=== PATIENT | female | born 1960 | race Caucasian/White ===

== ENCOUNTER 2019-03-16 06:22 | Inpatient (IN) | payer OTHER ==
[~2019-03-16] VITALS: Ht 160 cm; Wt 90.7 kg
[2019-03-16 07:08] LABS: HEMATOCRIT 35.7 % (37.0-47.0); HEMOGLOBIN 11.4 gm/dL (12.0-15.0); MCH 27.4 pg (26.0-34.0); MCHC 31.9 g/dL (28.0-37.0); MCV 85.9 fL (80.0-100.0); RBC 4.16 mil/uL (4.20-5.00); RDW 15.3 % (10.5-14.5); WBC 8.4 thou/uL (4.0-11.0)
[2019-03-16 08:08] VITALS: BP 113/67
[2019-03-16] MEDS ORDERED: COREG6.25 MG PO (08:42)
[2019-03-16] MEDS ORDERED: LISINOPRIL10 MG PO (08:42)
[2019-03-16] MEDS ORDERED: NEURONTIN300 MG PO (09:52)
[2019-03-16] MEDS ORDERED: BENADRYL25 MG PO (09:52)
[2019-03-16] MEDS ORDERED: NORCO 5-325 TA1 EAC1 PO (09:53)
[2019-03-16 11:00] VITALS: BP 98/62
[2019-03-16 11:30] VITALS: BP 111/62
[2019-03-16 12:00] VITALS: BP 123/69
[2019-03-16 19:55] VITALS: BP 111/54
[2019-03-16 20:15] VITALS: BP 111/54
[2019-03-17 00:09] LABS: GLYCOHEMOGLOBIN (HGB A1C) 5.9 % (4.8-5.6)
[2019-03-17 05:13] LABS: HEMATOCRIT 29.8 % (37.0-47.0); HEMOGLOBIN 9.5 gm/dL (12.0-15.0); MCH 27.9 pg (26.0-34.0); MCV 87.2 fL (80.0-100.0); RBC 3.42 mil/uL (4.20-5.00); RDW 15.3 % (10.5-14.5); WBC 12.5 thou/uL (4.0-11.0)
[2019-03-17 08:00] VITALS: BP 127/72
[2019-03-17 15:00] VITALS: BP 103/56
--- NOTE | 2019-03-17 16:10 | O ---
[facility] [place] [address] OPERATIVE REPORT Name: YOGI HERNANDEZ Richi Room #: 443-P [facility]#: [id number] Admission: 03/16/19 Attend Phys: Don Greene MD Discharge: Date of : 60 Report #: [id number] THIS REPORT FOR: //name// CC: [facility] physician/PCP Don Greene DATE OF SERVICE: 03/16/2019 PREOPERATIVE DIAGNOSIS: Right total knee arthroplasty postop infection. POSTOPERATIVE DIAGNOSIS: Right total knee arthroplasty postop infection. PROCEDURE: Irrigation and debridement, right total knee arthroplasty with polyethylene exchange. SURGEON: Don Greene MD GARAGE MANAGER: Lou Sawyer PA-C. ANESTHESIA: LMA. TOURNIQUET TIME: 8 minutes. COMPLICATIONS: None. ESTIMATED BLOOD LOSS: 50 mL. SPECIMENS: Deep cultures of the knee were taken x 2. CONDITION UPON LEAVING THE OPERATING ROOM: Stable. INDICATIONS FOR PROCEDURE: The patient is a 58-year-old female who is 4 weeks out from a right total knee arthroplasty. Her postoperative course was complicated by a fall and wound dehiscence on postoperative day #1, which she went back to the operating room for irrigation and primary closure. She presented to our office yesterday with several-day drainage from her knee that was foul smelling and with signs of a deep infection. After discussion with her and her , they elected for irrigation and debridement with polyethylene exchange of the right total knee in hopes for salvage of the total knee arthroplasty. DESCRIPTION OF PROCEDURE: Risks, benefits, alternatives, complications were discussed in detail with the patient including but not limited to risks of anesthesia; risk of damage to nerves, arteries, blood vessels; risk for infection, bleeding; risk for continued knee pain, continued infection and need for two-stage exchange procedure. Informed consent was obtained from the [address] [address] OPERATIVE REPORT Name: YOGI HERNANDEZ Room #: 443-P [facility]#: [id number] Admission: 03/16/19 Attend Phys: Don Greene MD Discharge: Date of : 60 Report #: [id number] patient. The right knee was appropriately marked in the preoperative holding area. Antibiotics were held until intraoperative cultures were obtained. She was brought to the operating room and placed in supine position on operating room table. LMA anesthesia was induced without complication. Tourniquet was placed on the right thigh. Right lower extremity was prepped and draped in normal sterile fashion. Timeout was performed properly identifying the patient, procedure as well as the instrumentation. All in the operating room were in agreement. Right lower extremity was elevated, tourniquet was inflated. Tourniquet time was 8 minutes. The previous incision was opened. There were three areas of draining sinus through the incision that were excised. Dissection was taken down deep to the fascia and there was a drainage from the deep fascia. Deep fascial closure was opened and there was a cloudy fluid in the joint. Cultures of this were taken x 2. The polyethylene was removed and the knee was thoroughly irrigated and debrided with pulse lavage. After this, tourniquet was deflated. Hemostasis was obtained with Bovie cautery. A size 10 highly constrained polyethylene was placed back in the knee. A deep drain was placed in the joint. A gram of vancomycin was placed deep in the joint. The fascia was closed with 0 PDS suture and the skin was closed with 2-0 nylon. Soft dressing of LEYLA dressing was applied. The patient tolerated this procedure well and went to the recovery room under care of Anesthesia postoperatively. <ELECTRONICALLY SIGNED> By: Don Greene MD 03/17/19 1610 0901 [id number] Don Greene MD /nt
[2019-03-17 19:42] VITALS: BP 108/57
[2019-03-18 05:37] LABS: HEMATOCRIT 29.8 % (37.0-47.0); HEMOGLOBIN 9.6 gm/dL (12.0-15.0); MCH 28.3 pg (26.0-34.0); MCHC 32.3 g/dL (28.0-37.0); MCV 87.6 fL (80.0-100.0); RBC 3.4 mil/uL (4.20-5.00); RDW 15.6 % (10.5-14.5); WBC 10.2 thou/uL (4.0-11.0)
[2019-03-18 08:10] VITALS: BP 128/60
[2019-03-18 11:31] VITALS: BP 128/60
[2019-03-18 15:39] VITALS: BP 131/61
[2019-03-18 19:37] VITALS: BP 117/59
[2019-03-19 05:05] LABS: HEMATOCRIT 31.6 % (37.0-47.0); HEMOGLOBIN 10.1 gm/dL (12.0-15.0); MCH 28.1 pg (26.0-34.0); MCHC 32.1 g/dL (28.0-37.0); MCV 87.7 fL (80.0-100.0); RBC 3.6 mil/uL (4.20-5.00); RDW 15.9 % (10.5-14.5); WBC 11.6 thou/uL (4.0-11.0)
[2019-03-19 08:00] VITALS: BP 134/68
--- NOTE | 2019-03-19 13:06 | HC ---
[facility] [place] [address] CONSULTATION Name: MARYYOGI Room #: 459-P ADM IN M.R.#: [id number] Admission: 03/16/19 Attend Phys: Don Greene MD Discharge: Date of : 60 Report #: [id number] THIS REPORT FOR: //name// CC: [facility] physician/PCP Don Greene DATE OF SERVICE: 03/16/2019 INFECTIOUS DISEASE CONSULTATION REASON FOR CONSULTATION: I was asked to evaluate concerning right total knee arthroplasty infection. HISTORY OF PRESENT ILLNESS: The patient is a 58-year-old who 4 weeks ago underwent a right total knee arthroplasty for degenerative arthritis. Day one following her surgery, she fell with dehiscence of her incision. She returned to the operating room for irrigation and primary closure. Received antibiotic therapy postoperatively. On 03/15, she noticed increased drainage with odorous result from the knee incision. She was evaluated in the outpatient clinic and arranged for surgery today. No fever, chills or sweats. Pain was minimal preoperatively. She has no history of diabetes or tobacco use. Taken to surgery today for poly exchange. I reviewed the operative note. She has received vancomycin perioperatively. It was noted that upon opening the deep fascial structures, there was a cloudy fluid in the joint. Cultures were obtained. Polyethylene was exchanged and the joint was washed out. A gram of vancomycin was placed deep into the joint. She tolerated the procedure well without complication. ALLERGIES: SULFA WITH GI UPSET. MEDICATIONS: As noted on her MAR including vancomycin, gabapentin, morphine, docusate sodium. PAST MEDICAL HISTORY: Osteoarthritis, eczema. FAMILY HISTORY: Noncontributory. SOCIAL HISTORY: Nonsmoker, no significant alcohol intake. Lives with her and daughter. Works in office setting. Has pet dogs. No travel. REVIEW OF SYSTEMS: Ten-point review of systems is negative other than what is described above. PHYSICAL EXAMINATION: VITAL SIGNS: Afebrile and hemodynamically stable. GENERAL: Alert and cooperative and pleasant, in no acute distress. [address] [address] CONSULTATION Name: MARYYOGI Richi Room #: 459-[facility] IN .R.#: [id number] Admission: 03/16/19 Attend Phys: Don Greene MD Discharge: Date of : 60 Report #: [id number] HEENT: She had some facial eczema periorbital area predominantly. No palpable adenopathy. Eyes without scleral icterus. Mouth without mucositis. NECK: Supple. LUNGS: Clear. HEART: Regular, without murmur, gallop or rub. ABDOMEN: Soft and nontender with no hepatosplenomegaly or mass. EXTREMITIES: Right knee was in surgical wrap. She had a Hemovac in place. Toes were warm to the touch. She had normal sensation. Strength in the foot was normal. Mood was normal. LABORATORY STUDIES: Sedimentation rate is 58. CRP 65. Beta hCG negative. Hemoglobin 11, WBC 8.4, platelet count was 371,000. IMPRESSION: A 58-year-old with: 1. Underlying osteoarthritis with early right total knee arthroplasty, prosthetic joint infection. 2. Eczema. RECOMMENDATIONS: We will continue antibiotic coverage with vancomycin pending culture results. We will have a PICC line placed. We will arrange outpatient infusion. Discussed the case with the patient in detail regarding her antibiotic course and followup. <ELECTRONICALLY SIGNED> By: Chintan Cruz MD 03/19/19 1306 [id number] [id number] Chintan Cruz MD /nt
[2019-03-19 18:30] VITALS: BP 124/57
[2019-03-19 19:30] VITALS: BP 114/58
[2019-03-19 21:00] VITALS: BP 112/59
[2019-03-19 22:00] VITALS: BP 128/64
[2019-03-19 23:00] VITALS: BP 118/55
[2019-03-20] VITALS (7 sets, daily range): BP systolic 112–135; BP diastolic 47–77
[2019-03-21 04:10] VITALS: BP 119/56
[2019-03-21 04:39] VITALS: BP 112/64
[2019-03-21 07:15] VITALS: BP 129/71
[2019-03-21 11:52] VITALS: BP 114/64
--- NOTE | 2019-03-21 13:36 | O ---
[facility] [place] [address] OPERATIVE REPORT Name: YOGI HERNANDEZ Richi Room #: 459-P ADM IN M.R.#: [id number] Admission: 03/17/19 Attend Phys: Don Greene MD Discharge: Date of : 60 Report #: [id number] THIS REPORT FOR: //name// CC: [facility] physician/PCP Don Greene DATE OF SERVICE: 03/19/2019 PREOPERATIVE DIAGNOSIS: Infected right total knee arthroplasty. POSTOPERATIVE DIAGNOSIS: Infected right total knee arthroplasty. PROCEDURE: Irrigation and debridement, right total knee arthroplasty. SURGEON: Don Greene MD HYDRAULIC PRESS SERVICER: Lou Sawyer PA-C ANESTHESIA: LMA. TOURNIQUET TIME: 15 minutes. CONDITION UPON LEAVING THE OPERATING ROOM: Stable. INDICATIONS FOR PROCEDURE: The patient is a 58-year-old female who is a little over 4 weeks out from a right total knee arthroplasty. She has previously had an irrigation and debridement with polyethylene exchange of the knee on 03/16/2019. The past 2 days, she has had continued drainage from her wound. In addition, her cultures from her surgery 03/16/2019 grew out group B strep as well as Klebsiella as well as enterococcus. She has had continued drainage from the incision and after discussion with her, she elected for repeat irrigation and debridement of the knee. DESCRIPTION OF PROCEDURE: Risks, benefits, alternatives, complications were discussed in detail with the patient including, but not limited to risk of anesthesia, risk of damage to nerves, arteries, blood vessels, risk for continued infection and need for explantation with antibiotic spacer in a staged procedure. Informed consent was obtained from the patient. The right knee was appropriately marked in the preoperative holding area. She previously was on vancomycin and meropenem for IV antibiotics. She was brought to the operating room and placed in supine position on operating room table. LMA anesthesia was induced without complication. Tourniquet was placed on the right thigh. Right lower extremity was prepped and draped in normal sterile fashion. Timeout was performed properly identifying the patient and procedure as well as the instrumentation. All in the operating room were in agreement. Right lower extremity was elevated, tourniquet was inflated. Tourniquet time was 15 [facility] [address] [place] [address] OPERATIVE REPORT Name: MARYYOGI Room #: 459-P [facility] IN ..#: [id number] Admission: 03/17/19 Attend Phys: Don Greene MD Discharge: Date of : 60 Report #: [id number] minutes. The incision was then opened with 10 blade and the deep fascial incision was opened. There was cloudy bloody fluid and cultures of this were taken x 2. The knee was then thoroughly irrigated with pulse lavage and a deep drain was placed in the knee joint. The fascial closure was closed with 0 Prolene suture. A superficial drain was placed and the skin was closed with 2-0 Vicryl and 2-0 nylon. Soft dressing of LEYLA dressing was applied. The patient tolerated this procedure well and went to the recovery room under care of anesthesia postoperatively. <ELECTRONICALLY SIGNED> By: Don Greene MD 03/21/19 1336 1723 12 Don Greene MD /nt
[2019-03-21 15:30] VITALS: BP 117/71
[2019-03-21 18:56] VITALS: BP 114/56
[2019-03-22 07:51] VITALS: BP 145/70
[2019-03-22] MEDS ORDERED: MS CONTIN15 MG PO (09:25)
[2019-03-22] MEDS ORDERED: PERCOCET PO (09:25)
[2019-03-22 09:40] VITALS: BP 145/70
[2019-03-22 14:59] VITALS: BP 123/67
[2019-03-22 20:58] VITALS: BP 118/72
[2019-03-23 08:38] VITALS: BP 128/52
--- NOTE | 2019-03-23 13:26 | HC ---
[facility] [place] [address] CONSULTATION Name: YOGI HERNANDEZ Richi Room #: 459-P ADM IN M.R.#: [id number] Admission: 03/17/19 Attend Phys: Don Greene MD Discharge: Date of : 60 Report #: [id number] THIS REPORT FOR: //name// CC: [facility] physician/PCP Don Greene DATE OF SERVICE: 03/22/2019 FOLLOWUP ID NOTE ID NOTE: 1. Vancomycin, Merrem. 2. Postoperative day #5, debridement and polyethylene exchange. 3. Postoperative day #3, repeat debridement and washout. SUBJECTIVE: No fever, chills or sweats. Her pain is controlled. Hemovac have been removed. She has no increased drainage from her incision. Her left arm PICC is functioning well. She has had no other cardiopulmonary, GI or complaints. OBJECTIVE: VITAL SIGNS: Afebrile and hemodynamically stable. CHEST: Clear. HEART: Regular. ABDOMEN: Soft and nontender. Right knee incision was dressed and dry. EXTREMITIES: 1+ edema in the right lower extremity. LABORATORY STUDIES: Reviewed. MICROBIOLOGY: Reports reviewed with no new cultures positive. IMPRESSION: Right total knee arthroplasty, prosthetic joint infection with polymicrobial growth including group B Streptococcus, Enterococcus, penicillin susceptible and Klebsiella. Plan to continue IV antibiotic therapy. Awaiting further information from microbiology laboratory regarding Unasyn susceptibility of the Klebsiella. The Klebsiella was ampicillin resistant. Need to establish whether sulbactam is susceptible. Otherwise, we will continue on a combination therapy and have the patient follow up in the outpatient clinic. <ELECTRONICALLY SIGNED> By: Chintan Cruz MD 03/23/19 1326 [id number] [id number] Chintan Cruz MD /nt
[2019-03-23 14:41] VITALS: BP 139/66
[2019-03-23 19:15] VITALS: BP 136/77
[2019-03-24 08:00] VITALS: BP 137/60
[2019-03-24 08:15] LABS: HEMATOCRIT 28.6 % (37.0-47.0); HEMOGLOBIN 9.2 gm/dL (12.0-15.0); MCH 27.7 pg (26.0-34.0); MCHC 32.2 g/dL (28.0-37.0); MCV 85.9 fL (80.0-100.0); PLATELET COUNT 284 thou/uL (150-400); RBC 3.33 mil/uL (4.20-5.00); RDW 15.4 % (10.5-14.5)
[2019-03-24 08:29] LABS: ALBUMIN 2.1 g/dL (3.4-5.0); CALCIUM 8.7 mg/dL (8.5-10.1); CREATININE 0.8 mg/dL (0.6-1.0); POTASSIUM 4.3 mmol/L (3.5-5.1); TOTAL BILIRUBIN 0.3 mg/dL (<0.1-1.0); TOTAL PROTEIN 5.9 g/dL (6.4-8.2)
[2019-03-24 08:52] LABS: PLATELET ESTIMATE NORMAL
[2019-03-24 15:00] VITALS: BP 140/65
[2019-03-24 19:15] VITALS: BP 136/63
[2019-03-25 07:27] VITALS: BP 129/71
[2019-03-25 14:45] VITALS: BP 116/60
[2019-03-25 19:15] VITALS: BP 148/64
[2019-03-26 07:40] VITALS: BP 129/55
[2019-03-26 17:38] VITALS: BP 134/58
[2019-03-26 20:00] VITALS: BP 102/51
[2019-03-27 08:00] VITALS: BP 152/74
[2019-03-27 08:10] VITALS: BP 127/71
[2019-03-27] MEDS ORDERED: PENICILLIN G PO5 MM1 (23:00)
[2019-03-27] MEDS ORDERED: PENICILLIN G PO5 MM1 IVPB (23:04)
[2019-03-27] MEDS ORDERED: CEFTRIAXONE2 G1 IVPB (23:04)
== END 2019-03-27 13:26 | DRG 467 ==
LOC: 4S 06:22 → OR 06:22 → TBA 06:22 → OR 06:23 → 4S 11:10 → OR 11:10 → 4S 11:10 → 4W 11:10 → TBA 11:10 → 4W 03-17 16:15 → 4S 03-17 16:15 → 4W 03-19 11:15 → 4S 03-19 11:15 → 4W 03-27 13:26
PROVIDERS: Specialist; ADMIT Orthopaedic Surgery
PROC: 0SPC0JZ Removal of Synthetic Substitute from Right Knee Joint, Open Approach (ICD-10-PCS; principal; 2019-03-16)
PROC: 0SRC0JZ Replacement of Right Knee Joint with Synthetic Substitute, Open Approach (ICD-10-PCS; principal; 2019-03-16)
PROC: 0S9C0ZZ Drainage of Right Knee Joint, Open Approach (ICD-10-PCS; 2019-03-19)
PROC: B54NZZA Ultrasonography of Left Upper Extremity Veins, Guidance (ICD-10-PCS; 2019-03-19)
PROC: 05HY33Z Insertion of Infusion Device into Upper Vein, Percutaneous Approach (ICD-10-PCS; 2019-03-19)
DX: T84.53XA Infection and inflammatory reaction due to internal right knee prosthesis, initial encounter (principal); Z16.11 Resistance to penicillins; B99.9 Unspecified infectious disease; L30.9 Dermatitis, unspecified; B95.1 Streptococcus, group B, as the cause of diseases classified elsewhere; B96.1 Klebsiella pneumoniae [K. pneumoniae] as the cause of diseases classified elsewhere; B96.89 Other specified bacterial agents as the cause of diseases classified elsewhere; Y83.8 Other surgical procedures as the cause of abnormal reaction of the patient, or of later complication, without mention of misadventure at the time of the procedure; Y92.89 Other specified places as the place of occurrence of the external cause; Z88.2 Allergy status to sulfonamides
CPT/HCPCS: 10047; 10102; 27000; 50010; 50101; 50415; 50954; 52001; 52282; 53078; 55389; 56525; 56526; 56528; 57095; 57103; 57110; 57115; 57116; 57180; 62110; 62900; 70005

== ENCOUNTER 2019-04-02 11:30 | Inpatient (IN) | payer OTHER ==
[~2019-04-02] VITALS: Ht 160 cm; Wt 93.0 kg
[~2019-04-02 11:30] MED LIST: BENADRYL25 MG PO; CEFTRIAXONE2 G1 IVPB; COREG6.25 MG PO; LISINOPRIL10 MG PO; MS CONTIN15 MG PO; NEURONTIN300 MG PO; NORCO 5-325 TA1 EAC1 PO; PENICILLIN G PO5 MM1; PENICILLIN G PO5 MM1 IVPB; PERCOCET PO
[2019-04-02 14:30] VITALS: BP 135/60
[2019-04-02 19:52] VITALS: BP 147/67
[2019-04-03 04:46] VITALS: BP 143/76
--- NOTE | 2019-04-03 05:39 | NUR ---
ASSESSMENT COMPLETED.PT C/O PAIN ON HER KNEE,MANAGED WITH PO MED.PT CONT ON IVF AND IV ABX ORDERED.IMMOBILIZER TO HER R KNEE.POLAR PACK IN PLACE,ICE CHANGED NEEDED.SCD AND JADE TO IN PLACE.PT ABLE TO REPOSITION SELF IN BED.HEMOVAC IN PLACE WITH SEROSANGUINEOUS DRAINAGE.PT RESTING ON HER BED AT THIS TIME.FALL PRECAUTIONS IN PLACE.CALL LIGHT WITHIN REACH.
[2019-04-03 06:39] LABS: HEMATOCRIT 27.1 % (37.0-47.0); HEMOGLOBIN 8.8 gm/dL (12.0-15.0); MCH 27.5 pg (26.0-34.0); MCHC 32.4 g/dL (28.0-37.0); MCV 84.8 fL (80.0-100.0); RBC 3.19 mil/uL (4.20-5.00); RDW 15.1 % (10.5-14.5); WBC 7.3 thou/uL (4.0-11.0)
--- NOTE | 2019-04-03 07:37 | O ---
[facility] [place] [address] OPERATIVE REPORT Name: YOGI HERNANDEZ Richi Room #: 444-P ADM IN M.R.#: [id number] Admission: 04/02/19 Attend Phys: Don Greene MD Discharge: Date of : 60 Report #: [id number] THIS REPORT FOR: //name// CC: [facility] physician/PCP Don Greene DATE OF SERVICE: 04/02/2019 PREOPERATIVE DIAGNOSIS: Chronic infected right total knee arthroplasty. POSTOPERATIVE DIAGNOSIS: Chronic infected right total knee arthroplasty. PROCEDURE: Explantation of right total knee arthroplasty with placement of antibiotic cement spacer. SURGEON: Don Greene MD. RENAL MEDICINE PHYSICIAN: Lou Sawyer PA-C. INDICATIONS FOR RENAL MEDICINE PHYSICIAN: Throughout the case, extensive retraction and manipulation of the knee was required. This was afforded to me by my higher level teaching assistant. ANESTHESIA: LMA. IMPLANTS: Biomet cement antibiotic spacer molds were used for the antibiotic spacer. TOURNIQUET TIME: 91 minutes. ESTIMATED BLOOD LOSS: 50 mL. COMPLICATIONS: None. SPECIMENS: Cultures were taken x 2. CONDITION UPON LEAVING THE OPERATING ROOM: Stable. INDICATIONS FOR PROCEDURE: The patient is a 58-year-old female who is about 6 weeks out from a right total knee arthroplasty. She unfortunately has gone on to have chronic knee replacement infection despite attempt at single stage salvage with washout and polyethylene exchange. She has had continued drainage from her wound as well as continued elevation and increasing elevation of her CRP and sed rate. After discussion with her regarding the pathology involved, we discussed explantation and placement of antibiotic cement spacer in a two staged procedure. [facility] [address] [place] [address] OPERATIVE REPORT Name: YOGI HERNANDEZ Room #: 444-P ADM IN M.R.#: [id number] Admission: 04/02/19 Attend Phys: Don Greene MD Discharge: Date of : 60 Report #: [id number] DESCRIPTION OF PROCEDURE: Risks, benefits, alternatives, complications were discussed in detail with the patient including but not limited to risk of anesthesia, risk of damage to nerves, arteries, blood vessels, risk for infection, bleeding, risk for continued infection, need for reoperation. Informed consent was obtained from the patient. Right knee was appropriately marked in the preoperative holding area. She previously was on IV antibiotics for chronic infection. She was brought to the operating room and placed in supine position on operating room table. LMA anesthesia was induced without complication. Tourniquet was placed on the right thigh. Right lower extremity was prepped and draped in normal sterile fashion. Timeout was performed properly identifying the patient and procedure as well as the instrumentation. All in the operating room were in agreement. Right lower extremity was elevated, tourniquet was inflated. Tourniquet time was 91 minutes. Previous incision was then opened and dissection was taken down to the fascia and deep flaps were developed medially and laterally. The previous fascial closure was then opened with a 10 blade and cultures of the knee synovial fluid were taken and sent x 2. The polyethylene liner was removed and then osteotomes were used to dissect around the femoral component and the femoral component was removed. Attention was then turned to the tibial component and flat osteotomes were used to dissect along the bone cement interface and the tibial component was then removed. An oscillating saw was used to remove the patellar component. Obvious bone cement was removed with a rongeur. The wound was then thoroughly irrigated with pulse lavage antibiotic solution for 9 liters of solution. The femur and tibia were sized and the appropriate size bulb was selected. Three bags of cement were mixed with 1 gram of vancomycin and 1.3 grams of tobramycin per bag of cement. The molds were then injected and allowed to set. After they set, the holes were removed from the spacer themselves and another batch of cement was mixed with gram of vancomycin and 1.3 grams of tobramycin and the antibiotic spacers were cemented to the femur and tibia and allowed to set. After this, tourniquet was deflated. Hemostasis was obtained with Bovie cautery. A deep drain was placed. The fascia was closed with 0 Vicryl, skin was closed with 2-0 Vicryl, 3-0 nylon and Prevena dressing was applied. The patient tolerated this procedure well and went to recovery room under care of anesthesia postoperatively. <ELECTRONICALLY SIGNED> By: Dno Greene MD 04/03/19 0737 [id number] [id number] Don Greene MD /nt
[2019-04-03 08:04] VITALS: BP 121/54
--- NOTE | 2019-04-03 12:18 | NUR ---
ASSUMED CARE OF PT AT 0700. IMMOBILIZER ON R KNEE. PT EDUCATED ON IMMOBILIZER AND HEMO VAC. FALL PRECAUTIONS IN PLACE. HEMOVAC MONITORED. PAIN BEING CONTROLELD BY PAIN MEDS. POLAR PACK, SCDS AND JADE HOSE IN PLACE. CALL LIGHT WITHIN REACH. BED IN LOWEST POSITION AND BED ALARM ON. WILL CONTINUE TO MONITOR THE PT.
--- NOTE | 2019-04-03 16:41 | NUR ---
Case opened to follow for dc planning. Pt is a&ox4 and is s/p cement spacer rt knee. She had a tkr and then fell. She will be nwb 6wks and on iv atb. Pt would like to return to snf at [facility] for continued rehab and iv atb. She normally lives at home with her spouse and college age dtr in a multi level home with 8 steps up to a bedroom and bathroom from the main living area. Dc shoe planner to fax referral and therapy evals to [facility] admissions. Dc timeframe is uncertain. Will need insurance authorization for snf readmission.
[2019-04-03 16:42] VITALS: BP 116/47
--- NOTE | 2019-04-03 17:00 | NUR ---
FAXED CLINICAL UPDATE TO J LUIS OF OP RECEIVED CONFIRMATION AND LEFT MSG WITH LYNNE IN ADM. DP TO FOLLOW.
[2019-04-03 20:05] VITALS: BP 127/49
--- NOTE | 2019-04-04 04:51 | NUR ---
ASSUMED PT CARE AT 19:15.PT IS UP WITH X2 ASSIST.PT IS UP TO BSC.PT HAS A PICC LINE .PT HAS A POLAR PACK.LEYLA DRESSING AND HEMOVAC WITH IMMOBILIZER.PAIN MGT WITH MED.CONTINUE POC
[2019-04-04 05:13] VITALS: BP 103/50
[2019-04-04 06:20] LABS: ABSOLUTE NEUTROPHILS 6.3 thou/uL (1.4-8.2); BASOPHILS 0.9 % (0.0-2.0); EOSINOPHILS 0.6 % (0.0-3.0); HEMOGLOBIN 7.6 gm/dL (12.0-15.0); LYMPHOCYTES 19.2 % (24.0-44.0); MCH 26.9 pg (26.0-34.0); MCHC 31.7 g/dL (28.0-37.0); MONOCYTES 9.8 % (1.0-8.0); PLATELET COUNT 327 thou/uL (150-400); POLYS 69.5 % (36.0-66.0); RBC 2.83 mil/uL (4.20-5.00); WBC 9.1 thou/uL (4.0-11.0)
[2019-04-04 10:11] VITALS: BP 107/65
--- NOTE | 2019-04-04 12:11 | NUR ---
AT THIS TIME THIS NURSE WENT TO PATIENT'S ROOM, THERAPY HAD STATED THAT PATIENT WANTED TO KILL SELF. PATIENT STATED " I TOLD HERE THAT THE PAIN WAS SO BAD THAT I DID NOT THINK I COULD TAKE IT. I DO NOT WANT TO KILL MYSELF I DO NOT HAVE PLAN. IM SORRY I SAID THAT " PATIENT STATES DOES NOT WANT ANTIDEPPRESSANT MED OR PHYSC VISIT. THIS NURSE TOLD HER IF ANYTHING CHANGES THAT I CAN GET MED OR DOCTOR VISIT, I ALSO TOLD HER WE WOULD KEEP ON TOP OF PAIN MED.
[2019-04-04 18:37] VITALS: BP 98/60
[2019-04-04 19:52] VITALS: BP 115/55
[2019-04-05 04:04] VITALS: BP 11/63
--- NOTE | 2019-04-05 05:40 | NUR ---
PT IS A/O X4.PT IS UP WITH SBA TO BSC.PT HAS PREVNA AND POLAR PACK ON.IV ACCESS ON KAYLEE.PAIN MGT WITH HYDROCODONE WITH PARTIAL RELIEVE.PT USES BSC .CONTINUE POC TILL EOS
[2019-04-05 06:15] LABS: HEMATOCRIT 23.4 % (37.0-47.0); HEMOGLOBIN 7.5 gm/dL (12.0-15.0); MCH 27.2 pg (26.0-34.0); MCHC 31.8 g/dL (28.0-37.0); MCV 85.5 fL (80.0-100.0); RBC 2.74 mil/uL (4.20-5.00); RDW 15.1 % (10.5-14.5); WBC 7.7 thou/uL (4.0-11.0)
[2019-04-05 08:10] VITALS: BP 120/44
[2019-04-05 09:31] VITALS: BP 120/64
[2019-04-05] MEDS ORDERED: ASPIR 8181 MG PO (12:40)
--- NOTE | 2019-04-05 12:52 | NUR ---
Following for d/c planning needs. Received telephone call from Dania with [employer] insurance. She has reviewed information and has authorized an initial 14 day stay at [facility]. Pt to d/c today via w/c van. landscape architect and planner made w/c van arrangements for [phone]. Chart to be copied and sent with pt. No other needs identified.
--- NOTE | 2019-04-05 13:20 | NUR ---
PT DISCHARGING TODAY TO [facility] FOR SKILLED STAY FAXED DC ORDERS/SUMMARY TO FACILITY SPOKE WITH LYNNE SHE RECEIVED DC ORDERS AND ARRANGED TRANSPORT BY [facility] FOR [phone]. NOTIFIED PT'S SON (LIN) OF DC AND TIME OF TRANSPORT. UNIT NOTIFIED AND CHART COPY PER US. RN TO CALL REPORT TO [phone].
--- NOTE | 2019-04-05 16:24 | NUR ---
PATIENT DISCHARGED AT THIS TIME TRANSPORTED BY [facility] TRAN[facility] VIA W/C VAN TO [facility]. ALL BELONGINGS PACKED AND SENT WITH PATIENT. PT GIVEN PRN PAIN MED BEFORE DISCHARGE.
--- NOTE | 2019-04-19 19:00 | HC ---
[facility] [place] [address] CONSULTATION Name: YOGI HERNANDEZ Room #: 444-P [facility] IN M.R.#: [id number] Admission: 04/02/19 Attend Phys: Don Greene MD Discharge: 04/05/19 Date of : 60 Report #: [id number] THIS REPORT FOR: //name// CC: [facility] physician/PCP Don Greene DATE OF SERVICE: 04/02/2019 INFECTIOUS DISEASE CONSULTATION REASON FOR CONSULTATION: I was asked to evaluate concerning right total knee arthroplasty, prosthetic joint infection. HISTORY OF PRESENT ILLNESS: A 58-year-old underwent right total knee arthroplasty for degenerative arthritis end of January this year. Day 1 following her surgery, she fell and dehisced her incision. She returned to the operating room for irrigation and primary closure. She received perioperative antibiotic therapy. One month later, she noticed increased drainage from the knee incision, taken to surgery for polyethylene exchange and washout. Cultures revealed polymicrobial growth. It was noticed that there was cloudy fluid in the joint. She received combination antibiotic therapy postoperatively. Cultures revealed group B Streptococcus, penicillin susceptible Enterococcus faecalis and group B streptococcus. The Klebsiella pneumoniae was sensitive to all drugs tested except ampicillin. She had repeat washout again on 03/19/2019 with growth of Klebsiella pneumoniae same sensitivities. By 10 days following her polyethylene exchange, she was transferred to acute rehabilitation for further care. She was continued on penicillin and ceftriaxone. Overall, did well with this program except she continued to have drainage from her incision. It was therefore elected to have the patient return for further debridement with plans for a two-stage revision. On 04/02/2019, this was undertaken by Dr. Don Greene. Biomet cement antibiotic spacer mold was used with vancomycin and tobramycin mixed in the cement. She tolerated the procedure well with no further complications. Postoperatively, has been afebrile and was stable getting out of bed with help of physical therapy. ALLERGIES: SULFA WITH GI UPSET. MEDICATIONS: As noted on MAR including penicillin and ceftriaxone, narcotics for pain. PAST MEDICAL HISTORY: Osteoarthritis, eczema. FAMILY HISTORY: Noncontributory. SOCIAL HISTORY: Nonsmoker, no significant alcohol intake. Lives with her and daughter. Works in an office setting. [facility] [address] [place] [address] CONSULTATION Name: YOGI HERNANDEZ Richi Room #: 444-P [facility] IN .R.#: [id number] Admission: 04/02/19 Attend Phys: Don Greene MD Discharge: 04/05/19 Date of : 60 Report #: [id number] REVIEW OF SYSTEMS: Ten-point review was negative other than what is described above. PHYSICAL EXAMINATION: VITAL SIGNS: Afebrile and hemodynamically stable. GENERAL: She is alert and cooperative and pleasant, in no acute distress. Left upper extremity PICC was without erythema or drainage. EYES: Without scleral icterus. MOUTH: Without mucositis. NECK: Supple. LUNGS: Clear. HEART: Regular, without murmur, gallop or rub. ABDOMEN: Soft and nontender. No hepatosplenomegaly or mass. EXTREMITIES: Right knee incision had a Prevena dressing in place. Richie drain was also in place. Pulses in the feet were normal and sensation was intact. PSYCHIATRIC: Mood was normal. LABORATORY STUDIES: Gram stain showed no organisms and no wbc's. Cultures are pending. Hemoglobin 8.8, WBC 7.3, platelet count 347,000. IMPRESSION: A 58-year-old, postoperative day #1 from explantation of her right total knee arthroplasty due to prosthetic joint infection, polymicrobial related to group B Streptococcus, Enterococcus faecalis, Klebsiella pneumoniae. This infection occurred after traumatic injury during the early postoperative period. RECOMMENDATIONS: We will continue IV antibiotic therapy with ceftriaxone and penicillin G. Check serial laboratory studies including CBC, chemistry, ESR and CRP. Anticipate a 6-week course of IV antibiotic therapy followed by revision surgery. Had discussed plan of care with Dr. Greene and patient. <ELECTRONICALLY SIGNED> By: Chintan Cruz MD 04/19/19 1900 [id number] 53 Chintan Cruz MD /nt
== END 2019-04-05 16:35 | DRG 470 ==
LOC: OR 11:30 → EDSTATUS 11:31 → PRE 11:34 → TBA 13:07 → 4S 13:07
PROVIDERS: ADMIT Orthopaedic Surgery
PROC: 0SRC0J9 Replacement of Right Knee Joint with Synthetic Substitute, Cemented, Open Approach (ICD-10-PCS; principal; 2019-04-02)
DX: T84.53XA Infection and inflammatory reaction due to internal right knee prosthesis, initial encounter (principal); F43.20 Adjustment disorder, unspecified; Z88.2 Allergy status to sulfonamides; Z79.82 Long term (current) use of aspirin; Z79.899 Other long term (current) drug therapy
CPT/HCPCS: 10102; 50010; 50101; 50415; 50954; 51130; 51225; 53000; 53078; 53337; 56527; 56528; 57095; 57103; 57110; 57180; 57242; 64042; 70005

== ENCOUNTER 2019-06-19 07:28 | Inpatient (IN) | payer OTHER ==
[2019-06-11 13:34] LABS: HEMATOCRIT 37.1 % (37.0-47.0); HEMOGLOBIN 11.8 gm/dL (12.0-15.0); MCH 26.9 pg (26.0-34.0); MCHC 31.8 g/dL (28.0-37.0); MCV 84.6 fL (80.0-100.0); RBC 4.39 mil/uL (4.20-5.00); RDW 16.2 % (10.5-14.5); URINE BILIRUBIN NEGATIVE (Negative); URINE BLOOD NEGATIVE (Negative); URINE CLARITY CLEAR; URINE COLOR YELLOW; URINE GLUCOSE-RANDOM* NEGATIVE (Negative); URINE KETONES NEGATIVE (Negative); URINE LEUKOCYTES-REFLEX NEGATIVE (Negative); URINE NITRITE-REFLEX NEGATIVE (Negative); URINE PROTEIN (DIPSTICK) NEGATIVE (Negative); URINE SPECIFIC GRAVITY 1.015 (1.005-1.035); URINE UROBILINOGEN 0.2 E.U./dl (0.2-1.0); WBC 7.7 thou/uL (4.0-11.0)
[2019-06-11 13:44] LABS: ALBUMIN 2.8 g/dL (3.4-5.0); CALCIUM 8.8 mg/dL (8.5-10.1); CREATININE 1.1 mg/dL (0.6-1.0); POTASSIUM 4.7 mmol/L (3.5-5.1)
[2019-06-11 13:46] LABS: INR 1.1; PROTIME 10.8 Seconds (9.3-11.4)
--- NOTE | 2019-06-14 13:01 | EKG ---
[place] [address] [place] [address] ELECTROCARDIOGRAM REPORT Name: YOGI HERNANDEZ Room #: [facility]#: [id number] Admission: Attend Phys: Don Greene MD Discharge: Date of : 60 Report #: [id number] THIS REPORT FOR: //name// [facility] Test Date: 2019-06-11 Test Time: 13:32:06 Pat Name: YOGI HERNANDEZ Department: Room: Gender: F Service Mechanic: joyce : 1960 Requested By: Don Greene Order Number: [id number] MD: Alden Iglesias Measurements Intervals [place] Rate: 55 P: 32 AR: 164 QRS: -5 QRSD: 96 T: 6 QT: 436 QTc: 417 Interpretive Statements Sinus rhythm Low voltage, precordial leads Consider anterior infarct Baseline wander in lead(s) V1 No previous ECG available for comparison Electronically Signed On 06-14-2019 13:01:21 BUSINESS PLANNING ANALYST by Alden Iglesias [email or web address] <ELECTRONICALLY SIGNED> By: Alden Iglesias MD 06/14/19 1301 1332 31 Alden Iglesias MD /MARÍA ELENA
[~2019-06-19] VITALS: Ht 162.6 cm; Wt 99.8 kg
[~2019-06-19 07:28] MED LIST changes: +ADULT LOW DOSE81 MG PO; +ASPIR 8181 MG PO; +BUSPIRONE HCL7.5 MG PO; +CARVEDILOL12.5 MG PO; +FERROUS SULFAT325 MG PO; +LEXAPRO 10 MG T10 M1 PO; +MIRALAX17 G1 PO; +MORPHINE SULFAT15 M3 PO; +PERCOCET 5-3251 EACH PO; +PRINIVIL20 MG PO; +SENNA PLUS TAB1 EACH PO; +TRAZODONE HCL50 MG PO; +XANAX 0.25 MG0.25 MG PO
[2019-06-19 09:07] VITALS: BP 91/49
[2019-06-19 12:15] VITALS: BP 140/88
[2019-06-19 18:14] VITALS: BP 104/50
[2019-06-19 19:35] VITALS: BP 108/65
[2019-06-20 00:35] VITALS: BP 106/51
[2019-06-20 03:47] VITALS: BP 132/66
--- NOTE | 2019-06-20 05:01 | NUR ---
NOC: ASSUMED CARE OF PT @1900 REPORT RECIEVED FROM DAY SHIFT NURSE. PT A&OX4 BEEN ON THE UNIT SINCE 1215 POST OP PT LEYLA DRESSING, HEMOVAC AND POLAR PACK INTACT. PAIN MEDS GIVEN FOR RT KNEE PAIN. PICC LINE INTACT IN LFT UPPER ARM AND FLUIDS INFUSING IV TEAM TO ACESSS LINE IN THE AM. PT STATED BLOOD WAS DRAWN EARLIER DURING THE DAY SHIFT. SCD'S AND JADE HOSE INTACT. PT UP WITH ASSIST TO THE [facility] AMBULATED GOOD WITH WALKER AND GAIT BELT. EMPITED 150CC FEROM HEMOVAC. FALL PREC IN PLACE AND CALL LIGHT WITHIN REACH WILL CONT WITH POC TILL EOS.
[2019-06-20 07:56] VITALS: BP 83/44
[2019-06-20 09:30] VITALS: BP 111/51
[2019-06-20 10:35] LABS: HEMATOCRIT 31.8 % (37.0-47.0); HEMOGLOBIN 10.1 gm/dL (12.0-15.0); MCH 26.7 pg (26.0-34.0); MCHC 31.6 g/dL (28.0-37.0); MCV 84.5 fL (80.0-100.0); RBC 3.76 mil/uL (4.20-5.00); RDW 16.2 % (10.5-14.5)
[2019-06-20 17:45] VITALS: BP 103/46
--- NOTE | 2019-06-21 02:55 | NUR ---
ASSUMED PT CARE AT 1900. PT DENIES PAIN. ALERT AND ORIENTED x4. PICC LINE WORKING PROPERLY. RIGHT KNEE DRESSING DRY AND INTACT. ANTIBIOTICS HUNG PER ORDER. SLEPT THROUGH MOST OF SHIFT, WILL CONTINUE TO MONITOR.
[2019-06-21 07:35] VITALS: BP 106/43
[2019-06-21 08:53] LABS: HEMATOCRIT 28.6 % (37.0-47.0); HEMOGLOBIN 9.2 gm/dL (12.0-15.0); MCH 27.2 pg (26.0-34.0); MCHC 32.1 g/dL (28.0-37.0); MCV 84.8 fL (80.0-100.0); RBC 3.37 mil/uL (4.20-5.00); RDW 16.9 % (10.5-14.5); WBC 7.7 thou/uL (4.0-11.0)
--- NOTE | 2019-06-21 11:28 | NUR ---
PT CARE ASSUMED AT 0700. A&Ox4. PT MORNING BP MEDS HELD DUE TO LOW BP. PT UP WITH PT. PT WANTS TO WAIT TO DISCHARGE UNTIL TOMORROW. PT WILL DO STAIRS TOMORROW AND POSSIBLY DISCHARGE AFTER. PAIN WELL MANAGED WITH PAIN MEDICATION ON BOARD. IV TEAM CALLED FOR DRESSING CHANGE OF PICC LINE. FLUIDS INFUSING. LEYLA DRESSING INTACT. POLAR PACK ON. PT IS UP WITH WALKER AND STAND BY ASSIST. PT UP IN RECLINER. SCD AND JADE HOSES IN PLACE. CALL LIGHT IN REACH
[2019-06-21 16:15] VITALS: BP 105/59
--- NOTE | 2019-06-21 16:22 | NUR ---
VASCULAR ACCESS NOTIFIED THAT PT WITH PICC NEEDED DRG CHG. STAT CXR ORDERED TO VERIFIY PLACEMENT SINCE PT WAS ADMITTED WITH LINE.CXR SHOWS LINE CURLED IN AZYGOS. LINE WITHDRAWN 1CM AND POWER FLUSHED, 2ND XRAY CONFIRMS LINE IS NOW IN PROXIMAL SVC
--- NOTE | 2019-06-21 16:42 | NUR ---
INITIAL ASSESSMENT: Pt evaluated for d/c planning needs. Reviewed chart and spoke with nurse, PT and pt. Pt is alert and oriented. Pt lives in house with spouse and was independent with ADL's prior to admission to the hospital. Pt has walker at home and bedside commode. Pt has not had home health in the past. Pt said her has been diagnosed with Charcot foot and is unable to assist pt if she returns home. Pt is interested in going to SNF for short stay. Pt was given choices and wants to go to [facility] again, as she did in March. Asked shoe planner to fax referral to [facility]. Spoke with admissions at [facility] and they will review information and seek insurance authorization. Will remain available to assist as needed.
--- NOTE | 2019-06-21 16:45 | NUR ---
FAXED REFERRAL TO [facility] RECEIVED CONFIRMATION AND LEFT MSG WITH LYNNE IN ADM THAT POSS DC TOMORROW. DP TO FOLLOW.
--- NOTE | 2019-06-21 19:25 | NUR ---
PT ARRIVED ON UNIT IN [facility]. VSS, NO C/O PAIN AT THIS TIME. PT UP WITH ASSISTANCE. PT HAS LEYLA DRESSING AND ICE POLAR PACK. CALL LIGHT IN REACH/PERSONAL ITEMS. WILL CONTINUE TO MONITOR PT.
[2019-06-21 21:45] VITALS: BP 115/51
[2019-06-22 03:07] LABS: GLYCOHEMOGLOBIN (HGB A1C) 5.6 % (4.8-5.6)
--- NOTE | 2019-06-22 03:07 | NUR ---
ASSUMED CARE OF PATIENT AT SHIFT CHANGE. ASSESSMENT CHARTED, MEDICATIONS GIVEN PER AUG; 1800 ANTIBIOTIC HUNG BY THIS NURSE D/T NOT BEING AVAIABLE EARLIER. PATIENT IS A&OX4 AND PLEASANT. PATIENT VOICES PAIN ON R KNEE AT 6/10. VSS. PATIENT HAS A LEYLA DRESSING C/D/I AND POLAR PACK WORKING. JADE HOSE ON BLE AND SCD ON L CALF. PATIENT REQUESTED AMBIEN TO HELP W SLEEPING. PATIENT STATED SHE "DOESN'T FEEL READY TO GO TO THE NEXT LEVEL" AND WOULD LIKE TO STAY AT [facility] FOR 1 MORE NIGHT BEFORE GOING TO [facility]. PRN PAIN MED GIVEN AND REASSESSED PAIN LEVEL IS 3/10. PATIENT DENIES NO OTHER NEEDS AT THIS TIME. FALL PRECAUTIONS IN PLACE, PATIENT CALLS OUT APPROPRIATELY. WILL CONTINUE TO MONITOR AND FOLLOW POC
[2019-06-22 05:14] LABS: HEMATOCRIT 29.5 % (37.0-47.0); HEMOGLOBIN 9.5 gm/dL (12.0-15.0); MCH 27.4 pg (26.0-34.0); MCHC 32.2 g/dL (28.0-37.0); MCV 85.1 fL (80.0-100.0); RBC 3.47 mil/uL (4.20-5.00); RDW 16.5 % (10.5-14.5); WBC 7.3 thou/uL (4.0-11.0)
[2019-06-22 07:28] VITALS: BP 104/56
--- NOTE | 2019-06-22 10:34 | NUR ---
SW reviewed chart and spoke with nursing and hospitalist. Pt was transferred to [facility] from and is progressing towards goals for discharge. SW met with pt at bedside to discuss discharge plan. Pt confirms that her plan is to go to [facility] pending insurance authorization. Pt's spouse has a foot injury and may not be able to assist pt upon her return home. Pt states that having short term rehab would be beneficial. VICK updated [place] restorative coordinator and liaison. VICK is following to assist as needed with discharge planning.
--- NOTE | 2019-06-22 13:45 | NUR ---
Assumed pt care at 7am.Pt in bed resting. Assessment completed.vss.Assisted pt to br, voided without any difficulty and returned to chair for breakfast. Fair appetite noted.Pt tolerated am meds and returned to bed after breakfast to nap.Lou novoa here,order noted.Pt will possibly dc to snf or home in am. Pt in bed with polar pack on. No verbal c/o at present.Will continue to monitor.
--- NOTE | 2019-06-22 16:16 | NUR ---
RECEIVED CALL FROM [facility] ASKING FOR PT'S DC PLAN. I CALLED BACK [phone] AND LEFT MESSAGE THAT WE WERE SEEKING AUTH FOR REHAB AT [facility].
[2019-06-22 17:58] VITALS: BP 125/50
[2019-06-22 21:30] VITALS: BP 102/46
[2019-06-22 22:40] VITALS: BP 95/47
[2019-06-23 00:29] VITALS: BP 117/70
--- NOTE | 2019-06-23 03:49 | NUR ---
ASSUMED CARE OF PATIENT AT SHIFT CHANGE. ASSESSMENT CHARTED; R EXTREMITY HAS EXCELLENT ROM AND IS WARM, PINK AND DRY. CAP REFILL ON RLE IS LESS THAN 3 SECONDS. BLOOD PRESSURE CONTINUES TO BE LOW BUT PATIENT STATES NO DISTRESS OR SYMPTOMS. THIS NURSE WILL BE RECHECKING PATIENTS BP AT LEAST Q1 HOUR UNTIL STABLE...PATIENTS BP BACK UP TO 117/70 AT MIDNIGHT. ALL OTHER VSS. PATIENT VOICED PAIN LEVEL AT A 6/10 AT BEGINNING OF SHIFT WHICH WORSENED AFTER AMBULATING TO TOILET. PRN PAIN MEDIACTION GIVEN NEEDED AND PATIENT VOICED PAIN AT 2/10. PATIENT TOLERATES AMBULATION WELL WITH NO SIGNS OF DYSPNEA. PATIENT HAD A MODERATE BM THIS SHIFT. SURGICAL SITE IS C/D/I. PER CASE MANAGEMENT, PATIENT TO D/C THIS AM 06/23/2019 TO [facility] ONCE AUTHORIZED. SCD ON L LEG. POLAR PACK IN PLACE, LEYLA DRESSING C/D/I. FALL PRECAUTIONS ARE IN PLACE. WILL CONTINUE TO MONITOR AND FOLLOW PLAN OF CARE
--- NOTE | 2019-06-23 05:24 | NUR ---
THIS NURSE AGREES WITH ASSESSMENT AND NOTES BY SENIOR STAFF SPECIALIZED EMPLOYMENT ON THIS PATIENT.
[2019-06-23 07:20] VITALS: BP 111/60
[2019-06-23 14:05] VITALS: BP 96/63
--- NOTE | 2019-06-23 16:01 | NUR ---
ASSUME CARE AT 0700. PT AOX4, VSS, PAIN CONTROLLED WITH ORAL ANALGESIC ORDERED. PT UP WITH PT WALKING IN THE HALLS AND NOW UP IN RECLINER. PT DRESSING ON RT KNEE APPEARS DRY AND INTACT. PT HAS POLAR ICE PACK, GOES TO THE RESTROOM WITH STANDBY ASSIST. LUE PICC S/L. BP WITHIN NORMAL LIMITS THIS AM BUT DROPPED DURING AFTERNOON BP 93/60. CALL LIGHT IN REACH/PERSONAL ITEMS, WILL CONTINUE TO MONITOR PT.
[2019-06-23 19:51] VITALS: BP 122/53
--- NOTE | 2019-06-24 03:39 | NUR ---
PATIENT ALERT AND ORIENTED X4. UP WITH WALKER AND SBA. MEDICATED FOR PAIN IN RIGHT KNEE WITH GOOD RESULTS. LEFT UPPER ARM PICC (SINGLE) IS FUNCTIONING W/O COMPLICATION. POLAR PACK IN PLACE. SLIGHT TEMP OF 99.4 DOWN TO 98.3. PATIENT AWAITING INSURANCE APPROVAL TO DISCHARGE TO [place] FOR THERAPY BEFORE RETURNING HOME. COOPERATIVE AND PLEASANT. RESTING QUIETLY AT TIME OF NOTE. WILL MONITOR.
[2019-06-24 07:18] VITALS: BP 127/56
[2019-06-24 15:12] VITALS: BP 97/47
--- NOTE | 2019-06-24 16:26 | NUR ---
A/O, clam and pleasant; bed rest. claimed that she felt better; Polar pack on; no n/v, afebrile. Bed rest. will keep monitoring.
[2019-06-24 16:31] VITALS: BP 122/53
--- NOTE | 2019-06-24 16:56 | NUR ---
Patient had a BN, black stool, might due to Iron intake; fresh blood was found on the pad, patient claimed that she felt she might have hemorroids. Will pass it on to the night nurse for close monitoring.
[2019-06-24 19:01] VITALS: BP 111/55
--- NOTE | 2019-06-25 06:40 | NUR ---
PATIENT ALERT AND ORIENTED X4. IVPB INFUSED W/O COMPLICATION. REPORTED TO THIS NURSE AT SHIFT CHANGE REGARDING BLEEDING OF HEMRROIDS, HOWEVER, PATIENT DID NOT GET UP DURING THE NIGHT FOR THIS NURSE TO CHECK. PATIENT AND NURSE TALKED ABOUT THE SITUATION AND SHE IS NOT THAT CONCERNED. COOPERATIVE AND PLEASANT. RESTING QUIETLY.
[2019-06-25 07:18] VITALS: BP 124/76
--- NOTE | 2019-06-25 10:41 | NUR ---
VICK reviewed chart and spoke with nursing. ID recommends PO abx at time of discharge. Awaiting insurance authorization for pt to go to [facility]. PT/OT to see pt early. Clinical and therapy updates to be faxed to [facility] when available. SW updated [place] data security coordinator and liaison. VICK met with pt at bedside to provide update. Pt is aware and in agreement with discharge plan. VICK is folloiwng to assist as needed with discharge planning.
[2019-06-25] MEDS ORDERED: AUGMENTIN 875-1 EACH PO (12:59)
--- NOTE | 2019-06-25 13:06 | NUR ---
DISCHARGE PLANNING. PATIENT DISCHARGING TO [facility], [facility]. PENDING INSURANCE AUTH. CLINICAL UPDATES FAXED TO [facility] ADMISSIONS. AWAITING RESPONSE. FOLLOWING.
[2019-06-25 14:30] VITALS: BP 103/50
[2019-06-25 19:44] VITALS: BP 122/55
--- NOTE | 2019-06-25 20:03 | NUR ---
ASSUMED CARE OF PATIENT AT 0715, PATIENT ALERT AND ORIENTED X 4. PATIENT UP WITH ASSIST X 1 WITH WALKER AND GAIT BELT. PATIENT C/O PAIN WITH RIGHT KNEE. 10/27, RECEIVED MORPHINE 15MG ER THIS AM. PATIENT WAS UP TO THE CHAIR TODAY. PATIENT WORKED WITH PHYSICAL THERAPY TODAY. WAITING ON INSURANCE AUTH. FOR [facility], CAME THRU LATE THIS AFTERNOON, PATIENT WILL DISCHARGE IN AM AT 1000. PATIENT HAS LEFT UPPER ARM SL PICC LINE. RECEIVING IV ANTIBIOTICS. PATIENT HAS LEYLA DRESSING TO RIGHT KNEE, POLAR PACK AND JADE HOSE, ALSO SCD'S IN PLACE. WILL CONTINUE TO MONITOR.
--- NOTE | 2019-06-26 05:06 | NUR ---
Assumed pt care @ 1900. Pt is A/OX4, VSS. Up with AX1, RW/GB to bathroom without any problems voiced. C/o pain to right knee LOP 6/10,medicated with [place] with relief reported. Edema noted on knee,warm to touch,polar pack in place. LEYLA dsg C/D/I. Resting quietly with no distress noted. Will continue to monitor pt.
[2019-06-26 07:45] VITALS: BP 111/58
[2019-06-26 08:31] VITALS: BP 111/58
--- NOTE | 2019-06-26 10:06 | NUR ---
DISCHARGE NOTE: SW reviewed chart and spoke with nursing and attending physician. Pt is medically stable for discharge to [facility] today. Attending physician evaluated pt this morning. Wheelchair van transportation scheduled for 1000 per facility's arrangements. All plans in place. SW met with pt at bedside to discuss and confirm discharge plan. Pt is aware and agreeable. Chart copy updated. Nursing provided with number to call report. No additional SW needs identified at this time, but is available to assist should needs arise.
--- NOTE | 2019-06-26 11:45 | NUR ---
ASSUMED CARE OF THE PATIEN AT 0715, PATIENT ALERT AND ORIENTED X 4. PATIENT UP WITH ASSIST X 1 WITH GAIT BELT AND WALKER. PATIENT C/O PAIN WITH RIGHT KNEE, 08/27, RECEIVED MORPHINE 15 MG ER THIS AM WITH AM MEDS. VSS. LEFT UPPER ARM SINGLE LUMEN PICC LINE REMOVED PRIOR TO DISCHARGE TO [facility]. PRESSURE DRESSING APPLIED TO SITE, 45CM AT END OF THE TIP. PATIENT WAS GIVEN HYDROCODONE 2 TABLETS PRIOR TO DISCHARGE. DISCHARGE PAPERWORK AND ALL PERSONAL BELONGINGS SENT WITH THE PATIENT. ATTEMPTED TO CALL REPORT UNABLE TO LEAVE A MESSAGE.
--- NOTE | 2019-06-27 15:58 | O ---
[facility] [place] [address] OPERATIVE REPORT Name: MARYYOGI Richi Room #: 411-P [facility] IN M.R.#: [id number] Admission: 06/19/19 Attend Phys: Don Greene MD Discharge: 06/26/19 Date of : 60 Report #: [id number] THIS REPORT FOR: //name// CC: [facility] physician/PCP Don Greene DATE OF SERVICE: 06/19/2019 PREOPERATIVE DIAGNOSIS: Right infected total knee arthroplasty, status post antibiotic cement spacer. POSTOPERATIVE DIAGNOSIS: Right infected total knee arthroplasty, status post antibiotic cement spacer. PROCEDURE: Removal of right total knee antibiotic cement spacer and reimplantation total knee arthroplasty, right knee. SURGEON: Don Greene MD. FIELD ARTILLERY OPERATIONS MAN: Lou Sawyer PA-C. INDICATIONS FOR FIELD ARTILLERY OPERATIONS MAN: Throughout the case, the extensive retraction and manipulation of the knee was required. This was afforded to me by my janitorial assistant. ANESTHESIA: General with an adductor canal block. IMPLANTS: Kebede and Nephew size 5 Legion Oxinium revision femoral component with a size 13 x 160 mm press-fit stem and a 4 mm offset livestock agent. The tibia was a size 3 with a 12 x 160 press-fit stem and a 4 mm offset livestock agent, we used a size 18 constrained polyethylene and a size 29 patella. TOURNIQUET TIME: 68 minutes. ESTIMATED BLOOD LOSS: 25 mL. COMPLICATIONS: None. SPECIMENS: Intraoperative frozen section was performed and shown to have only 1 neutrophil per high power field. INDICATIONS FOR PROCEDURE: The patient is a 58-year-old female, who has previously had a right total knee arthroplasty. 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 She has been on IV antibiotics and those have been stopped with no signs of recurrence of her infection and after discussion with she and her , they elected for a reimplantation of the right total knee [address] [address] OPERATIVE REPORT Name: MARYYOGI Richi Room #: 411-P [facility] IN [facility].#: [id number] Admission: 06/19/19 Attend Phys: Don Greene MD Discharge: 06/26/19 Date of : 60 Report #: [id number] arthroplasty. DESCRIPTION OF PROCEDURE: Risks, benefits, alternatives, and complications were discussed in detail with the patient including, but not limited to, risk of anesthesia, risk of damage to nerves, arteries, or blood vessels, risk for infection or bleeding, and risk for a continued knee pain and need for reoperation. Informed consent was obtained from the patient. Right knee was appropriately marked in the preoperative holding area. IV Ancef was given for preoperative antibiotics and she was brought to the operating room and placed in a supine position on operating room table. General anesthesia was induced without complication. A tourniquet was placed on the right thigh. Right lower extremity was prepped and draped in normal sterile fashion. Timeout was performed, properly identifying the patient and procedure as well as the instrumentation. All in the operating room were in agreement. Right lower extremity was exsanguinated and tourniquet was inflated. Tourniquet time was 68 minutes. The previous scar was used. This was opened with a 10 blade. Dissection was taken down sharply to the fascia and deep flaps were developed medially and laterally. Fresh 10 blade was used to make a medial parapatellar arthrotomy and the knee was inspected. There was a normal-appearing joint fluid and several specimens of synovium were then taken and sent for intraoperative frozen section and this came back as 0-1 cells per high power field. The previous antibiotic cement spacer was then removed with a combination of osteotomes and a rongeur and after removal of the spacer, the tibial and femoral bone were cleaned up with a rongeur and then the tibial and femoral canals were sequentially reamed up to a size 12 for the tibia and a size 13 for the femur. The reamer was left in the tibia and tibial resection cleanup cut was then made with an oscillating saw and tibial resection was made. After this, the tibia was sized and found to be a size 3 with the 4 mm offset livestock agent in the 11 o'clock position. This was then reamed for the livestock agent itself. After this, attention was turned to the femur. The distal femoral cleanup cut guide was pinned in place based off of the 13 reamer and the distal femoral cleanup cut was made. The femur was sized and found to be a size 5. This fit best with the 4 mm offset livestock agent at the 3 o'clock position. After this, anterior, posterior, and chamfer cuts were made. Box cut was made and a trial femoral component was placed. This was then trialed with multiple polyethylene thicknesses up to a size 18 constrained, at which point, the size 18 constrained had the best fit. The remainder of the patella was then examined. It was varied in thickness from 11-12 mm and so a small cleanup cut was made freehand with an oscillating saw to freshen up the patellar cut. This was then trialed with a size 29 patellar trial. Knee was taken through range of motion, found to be stable, and found to have good patellar tracking. After this, trial components were removed. Bone ends were thoroughly irrigated with normal saline. Final size 3 tibia with the 4 mm offset livestock agent and a 12 x 160 stem, a size 5 Legion revision Oxinium femur with a 4 mm offset livestock agent and a 13 x 160 stem, and a 29 patella were cemented in place using standard cementation techniques. While the cement cured, a periarticular injection consisting of morphine, ropivacaine, epinephrine, and [facility] [address] [place] [address] OPERATIVE REPORT Name: YOGI HERNANDEZ Room #: 411-P [facility] IN ..#: [id number] Admission: 06/19/19 Attend Phys: Don Greene MD Discharge: 06/26/19 Date of : 60 Report #: [id number] Toradol was placed around the knee joint capsule. After this cement cured, the tourniquet was deflated. Hemostasis was obtained with Bovie cautery. A final size 18 constrained polyethylene was placed. A gram of vancomycin was placed deep in the joint and deep drain was placed. The fascia was closed with 0 Vicryl, skin was closed with 2-0 Vicryl and 3-0 nylon, and a LEYLA dressing was applied. The patient tolerated this procedure well and went to the recovery room under care of anesthesia postoperatively. <ELECTRONICALLY SIGNED> By: Don Greene MD 06/27/19 1558 1139 1216 Don Greene MD /nt
--- NOTE | 2019-06-28 12:07 | PATH ---
[facility] [address] [address] PATHOLOGY RPT PROCEDURE Name: YOGI HERNANDEZ Room #: 411-P [facility] M.R.#: [id number] Admission: 06/19/19 Date of : 60 Discharge: 06/26/19 Report #: [id number] Path Case #: [id number] [facility] Accession Number: [id number] . 01 Material submitted: . knee - RIGHT KNEE TISSUE - FS. Modifiers: right . 01 Clinical history: . Presence of artificial knee joint. Unilateral osteoarthritis, right knee. . 02 Frozen section diagnosis: . FROZEN SECTION DIAGNOSIS: (Katerine Fernandez M.D.) . FSA1. "Right knee tissue", removal: - Synovial tissue with less than 1 neutrophil per high power field. - Focal fibrin deposition. - Focal areas of calcification and foreign body giant cells. . FROZEN SECTION GROSS DESCRIPTION: Part A is received fresh and labeled "right knee tissue" and it consists of three pieces of firm, pink-white tissue which aggregate to 3.0 x 3.0 x 1.2 cm. A portion of each piece is submitted for frozen section on block A1. Additional telephone services sales representative sections of the specimen are submitted in A2. (SELENA/kevyn; 06/21/2019) . Frozen section performed at [facility], [address], [place] [address]. DEVONTE/LEXI . 03 Diagnosis: Soft tissue, "right knee tissue", removal: - Synovial tissue with less than one neutrophil per high power field. - Focal fibrin deposition. - Focal areas of calcification and foreign body giant cells. . (SKM:symone; 06/28/2019) S 06/28/2019 1131 Local . 03 Electronically signed: . Jeff Fernandez MD, Pathologist NPI- [id number] . 01 Gross description: . PLEASE SEE FROZEN SECTION GROSS DESCRIPTION /QTP 06/22/2019 [address] [place] [address] PATHOLOGY RPT PROCEDURE Name: YOGI HERNANDEZ Room #: 411-P [facility] .R.#: [id number] Admission: 06/19/19 Date of : 60 Discharge: 06/26/19 Report #: [id number] Path Case #: [id number] . 03 Pathologist provided ICD-10: M67.861 . 03 CPT . 391695, [id number] Specimen Comment: A courtesy copy of this report has been sent to [phone] Specimen Comment: Report sent to [facility]formed [facility]: [facility] [address] [id number] MD Stevenson Strong MD Phone: [phone] Performed at: [address] [id number] MD Evita Olvera MD Phone: [phone] Performed at: 03 [facility] [address] [id number] MD Stuart Grimaldo MD Phone: [phone]
== END 2019-06-26 11:53 | DRG 466 ==
LOC: 4S 07:28 → TBA 07:28 → PRE 10:52 → 4S 12:47 → PRE 13:04 → 4N 06-21 18:05 → PRE 06-28 15:08
PROVIDERS: Hospitalist; ADMIT Orthopaedic Surgery
PROC: 05HY33Z Insertion of Infusion Device into Upper Vein, Percutaneous Approach (ICD-10-PCS; principal; 2019-06-19)
PROC: 0SPC08Z Removal of Spacer from Right Knee Joint, Open Approach (ICD-10-PCS; principal; 2019-06-19)
PROC: 0SRC06A Replacement of Right Knee Joint with Oxidized Zirconium on Polyethylene Synthetic Substitute, Uncemented, Open Approach (ICD-10-PCS; principal; 2019-06-19)
DX: T84.53XA Infection and inflammatory reaction due to internal right knee prosthesis, initial encounter (principal); E43 Unspecified severe protein-calorie malnutrition; D62 Acute posthemorrhagic anemia; Z88.2 Allergy status to sulfonamides; I95.81 Postprocedural hypotension; E66.9 Obesity, unspecified; Z68.37 Body mass index [BMI] 37.0-37.9, adult; I10 Essential (primary) hypertension; X58.XXXA Exposure to other specified factors, initial encounter; F41.9 Anxiety disorder, unspecified; Z79.899 Other long term (current) drug therapy
CPT/HCPCS: 10102; 10790; 50010; 50101; 50415; 50954; 51130; 51225; 51320; 52001; 52282; 53000; 53078; 55389; 56527; 56528; 57095; 57103; 57110; 57180; 57181; 62110; 62900; 64042; 70005